=== PATIENT | female | born 1985 | race Caucasian/White ===

== ENCOUNTER 2016-09-29 18:41 | Observation (INO) | payer OTHER ==
[~2016-09-29 18:41] MED LIST: PERCOCET1 TA1 PO
--- NOTE | 2016-10-02 02:54 | DISCHARGE SUMMARY ---
ADMIT DATE: 09/29/2016 DISCHARGE DATE: 10/01/2016 ADMITTING DIAGNOSES: 1. A 31-year-old, 2, para 0, currently at 36-2/7 weeks' gestation 2. Severe carpal tunnel with 3. Gestational hypertension DISCHARGE DIAGNOSES: 1. A 31-year-old, 2, para 0, currently at 36-2/7 weeks' gestation 2. Severe carpal tunnel with 3. Gestational hypertension 4. Failed induction BRIEF HISTORY: This is a 31-year-old female, G2, P0, at 36-2/7 weeks' gestation, presenting to the hospital with very severe carpal tunnel with with progressively increasing blood pressures that are now greater than 140/90, greater than 4 hours apart. She denies any ongoing visual changes, headaches, or right upper quadrant pain. After an extensive conversation about risks and benefits, it was determined that it was in the patient's best interest to attempt an induction. HELLP labs were reassuring and urine protein creatinine ratio was normal. HOSPITAL COURSE: The patient was monitored over the ensuing days and blood pressures did improve with bed rest. HELLP labs remained fairly normal. The patient received 3 doses of Cytotec and 12 hours of Pitocin with minimal cervical change. A cervical ripening balloon was then placed, which did produce not insignificant cervical change; however, there was no significant cervical change with Pitocin following a cervical ripening balloon. At this point, the patient continued to deny any headaches, visual changes, right lower quadrant pain. Her blood pressures are fairly improved as long as she is relaxing in bed; however, do continue to be intermittently greater than 140/90, but not higher than 160/110. Her HELLP labs are reassuring; however, now she does have an indeterminate protein/creatinine ratio. I had a long conversation with this patient and her regarding the risks and benefits of continued induction attempts versus taking a break with very close monitoring for 24-48 hours and reattempting the induction. They chose to wait 24-48 hours and reattempt the induction. I did explain to the patient that they need to monitor her situation very closely. She needs to be on bed rest at home. If she has any symptoms of progression of her gestational hypertension, she needs to report to the OB triage unit immediately. 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 We discussed risks of sudden significant progression of the gestational hypertension and preeclampsia, including eclampsia with a seizure and/or to mom and/or baby. They understood the risks and benefits of both of their options and chose to take a break from the induction but with the knowledge that they will return immediately for any progression of her preeclampsia or gestational hypertension and the plan that she will return to the hospital in 48 hours for repeat induction attempt. Carpal tunnel syndrome has progessed to numbness of R hand, but without weakness at this time. Will continue to use wrist splints for now. Patient also with abnl UA, but with no symptoms and UA appears contaminated. UC pending. She was instructed to call me immediately for ANY UTI symptoms and we would empirically start antibiotics at that time. PHYSICAL EXAMINATION: HEENT: On the day of discharge, head is atraumatic, normocephalic. Trachea is midline. LUNGS: Clear to auscultation bilaterally. HEART: S1, S2, regular rate and rhythm. No S3, S4, gallops, or rubs. There is a 2/6 systolic murmur increased at the base. ABDOMEN: Gravid. Cervical exam is 2 cm, about 78% effaced, negative 2 vertex, medium and mid. heart tones are reassuring. DISCHARGE INSTRUCTIONS/MEDICATIONS: The patient was discharged home with instructions to return to the hospital in 48 hours for repeat induction attempt, sooner for any other symptoms of increasing blood pressures or signs or symptoms of progression of her gestational hypertension and/or preeclampsia. She was also instructed to return to the hospital for any rupture of membranes or labor. Diet: Normal diet. Activity: Bed rest. Medications: vitamins 1 tab p.o. daily.
[2016-10-07] MEDS ORDERED: PERCOCET1 TA1 PO (14:28)
[2016-10-07] MEDS ORDERED: IBUPROFEN200 M1 PO (19:41)
[2016-10-07] MEDS ORDERED: CORRECTOL100 MG PO (19:41)
[2016-10-07] MEDS ORDERED: ACYCLOVIR200 MG PO (21:13)
[2016-10-07] MEDS ORDERED: ZOVIRAX5 % TOP (22:14)
== END 2016-10-01 20:00 | disposition home or self-care (01) ==
LOC: OB SRH 18:41
PROVIDERS: ADMIT Family Medicine
PROC: 3E033VJ Introduction of Other Hormone into Peripheral Vein, Percutaneous Approach (ICD-10-PCS; principal; 2016-09-30)
PROC: 3E033VJ Introduction of Other Hormone into Peripheral Vein, Percutaneous Approach (ICD-10-PCS; 2016-10-01)
PROC: 0U7C7ZZ Dilation of Cervix, Via Natural or Artificial Opening (ICD-10-PCS; 2016-10-01)
DX: O13.3 Gestational [pregnancy-induced] hypertension without significant proteinuria, third trimester (principal); O61.0 Failed medical induction of labor; Z3A.36 36 weeks gestation of pregnancy; G56.01 Carpal tunnel syndrome, right upper limb
CPT/HCPCS: 29243; 29244; 29247; 29263; 40021; 83499; 90004; 90074; 90100; 90185; 90469; 92331; 92680; 92860; 94060; 95059

== ENCOUNTER 2016-10-02 20:57 | Outpatient (CLI) | payer OTHER | END 2016-10-02 23:00 | LOC: LAB SRH 20:57 | DX: O13.3 Gestational [pregnancy-induced] hypertension without significant proteinuria, third trimester (principal) | CPT/HCPCS: 90936; 92130; 92340 ==

== ENCOUNTER 2016-10-04 06:50 | Inpatient (IN) | payer OTHER ==
[~2016-10-04] VITALS: Ht 162.6 cm; Wt 83.5 kg
[2016-10-05] VITALS (8 sets, daily range): BP systolic 135–153; BP diastolic 81–95
--- NOTE | 2016-10-05 10:13 | Progress Note ---
Subjective General Patient states that she is doing well and much more comfortable after epidural. No fevers, no cp,sob. Had SROM this am. Physical Exam Vital Signs / I&Os afebrile, nl bp General Appearance Alert, Cooperative Pelvic VE 7-8cm/100%/-2 per nursing Other FHT: 140 + accels, neg decels; mod variablity Assessment and Plan Problem List 1. Elective induction of labor planned Plan Patient is doing well at this time. Has reassuring FHT. Has good pain control. Expectant management.
[2016-10-06 02:30] VITALS: BP 135/73
[2016-10-06 08:30] VITALS: BP 151/91
[2016-10-06 13:05] VITALS: BP 127/84
[2016-10-06 16:30] VITALS: BP 120/76
[2016-10-06 23:30] VITALS: BP 133/71
--- NOTE | 2016-10-06 23:31 | Progress Note ---
Subjective General Urinating ok. Minimal clots. Abd cramping improved with medications. Eating well. No headache, visual changes, or RUQ pain. Physical Exam Vital Signs / I&Os Vital Signs Date Time Temp Pulse Resp B/P Pulse O2 O2 Flow FiO2 Ox Delivery Rate 10/06 1630 36.6 65 18 120/76 10/06 1305 36.8 66 18 127/84 10/06 0830 36.6 67 18 151/91 10/06 0230 36.4 75 16 135/73 I&O 10/06 0000 10/05 1600 10/05 0800 Intake Total Output Total 500 Balance -500 General Appearance Alert, No acute distress, Mild distress Lungs Clear to auscultation, Normal air movement Cardiovascular Regular rate and rhythm, Normal S1 and S2, No murmurs, gallops, rubs Abdomen Normal bowel sounds, Soft, No tenderness, U-2 Extremities No edema Assessment and Plan Problem List 1. care following vaginal delivery Plan s/p induction 2/2 gestational hypertension. 2. Gestational hypertension Plan Good diuresis today. blood pressure improving. Will monitor 3. Carpal tunnel syndrome during Plan Worsened pain today, but decreased tingling.
[2016-10-07 09:00] VITALS: BP 134/92
[2016-10-07 13:35] VITALS: BP 141/85
[2016-10-07] MEDS ORDERED: PERCOCET1 TA1 PO ×2 (14:28)
[2016-10-07 17:20] VITALS: BP 137/80
[2016-10-07] MEDS ORDERED: CORRECTOL100 MG PO ×2 (19:41)
[2016-10-07] MEDS ORDERED: IBUPROFEN200 M1 PO ×2 (19:41)
--- NOTE | 2016-10-07 19:45 | Provider's Discharge Care Plan ---
Problem, Goal, Plan Problem List 1. Preeclampsia Goals: Improved health/wellness Instructions: Follow up as directed 2. Carpal tunnel syndrome during Goals: Improve disease control, Therapeutic intervention Instructions: Follow up as directed 3. care following vaginal delivery Goals: Improved health/wellness, Improve nutrition status Instructions: Follow up as directed
[2016-10-07] MEDS ORDERED: ACYCLOVIR200 MG PO ×2 (21:13)
[2016-10-07] MEDS ORDERED: ZOVIRAX5 % TOP ×2 (22:14)
--- NOTE | 2016-10-08 01:06 | DISCHARGE SUMMARY ---
ADMIT DATE: 10/04/2016 DISCHARGE DATE: 10/07/2016 ADMITTING DIAGNOSES: 1. Gestational hypertension 2. 2, para 0, currently at 38 and 6/7 weeks gestation 3. Severe carpal tunnel syndrome of DISCHARGE DIAGNOSES: 1. Preeclampsia 2. 2, now para 1, delivered at 39 weeks gestation, male with a tight nuchal cord, healthy 3. Chorioamnionitis 4. Severe carpal tunnel syndrome of , improving 5. Second degree perineal laceration 6. Herpes labialis BRIEF HISTORY: This is a 31-year-old, G2, P0, presenting to the hospital for induction secondary to gestational hypertension. On presentation to the hospital, HELLP and preeclampsia labs were repeated and urine protein creatinine ratio was initially normal. The patient's blood pressures were intermittently elevated, but fairly reassuring. HOSPITAL COURSE: Induction using Cytotec and then Pitocin was performed and the patient slowly progressed to complete, delivering a male at 39 weeks' gestation. The patient had been SROM for 21 hours and did spike a temperature within an hour of delivery. CBC was done and showed an elevated white blood cell count of 16.1, diagnosing chorioamnionitis. There was no time to give antibiotics before delivery. heart tones were very reassuring during the entire labor process ; however, infant had an extremely tight nuchal cord at the time of delivery, which was clamped and cut, however, the patient did not take a good strong spontaneous breath after delivery and PPV was performed as per the resuscitation note. Apgars were 3, 5, and 8. Infant is now doing fine. A second degree perineal laceration was repaired in the normal fashion after spontaneous delivery of an intact placenta. The patient was monitored in the hospital for the ensuing days, working on recovering. Blood pressures decreased after delivery and she had good diuresis after delivery. The patient did have extremely high blood pressures when she started going into active labor; however, it was thought that these blood pressures were due to pain and not the pre-eclamptic process since as soon as adequate pain control was achieved (after trying multiple IV meds and resorting to an epidural), elevated blood pressures significantly improved. On the second day of admission, a repeat urine protein creatinine ratio was done and was extremely elevated at 1.46 meeting diagnostic criteria for preeclampsia. PHYSICAL EXAMINATION: VITAL SIGNS: At the time of discharge, vital signs are stable. GENERAL: This is a well-appearing female, sitting in a chair, in no apparent distress. HEENT: Head is atraumatic, normocephalic. HEART: S1, S2, regular rate and rhythm. No S3, S4, murmurs, gallops, or rubs. LUNGS: Clear to auscultation bilaterally. ABDOMEN: Soft, nontender, nondistended without hepatosplenomegaly or masses. Bowel sounds are active. Uterus is 2 cm below the umbilicus. There is no peripheral edema. DISCHARGE INSTRUCTIONS/MEDICATIONS: The patient was discharged home with instructions to follow up with me within 1 week for a blood pressure check. Warning signs for worsening preeclampsia were cautioned and the patient was informed that she can develop worsening preeclampsia up to 6 weeks after delivery. Diet: Regular. Activity: Pelvic rest. Medications: Percocet 1-2 tabs p.o. q.4 hours p.r.n. severe pain. Ibuprofen 600 mg p.o. q.6 hours p.r.n. pain. Colace 100 mg p.o. b.i.d. Acyclovir 200 mg p.o. 5 times a day or acyclovir 5% topical ointment apply topically 5 times per day.
== END 2016-10-07 22:43 | disposition home or self-care (01) | DRG 774 ==
LOC: OB SRH 06:50
PROVIDERS: ADMIT Family Medicine
PROC: 3E033VJ Introduction of Other Hormone into Peripheral Vein, Percutaneous Approach (ICD-10-PCS; 2016-10-04)
PROC: 0KQM0ZZ Repair Perineum Muscle, Open Approach (ICD-10-PCS; principal; 2016-10-05)
PROC: 10E0XZZ Delivery of Products of Conception, External Approach (ICD-10-PCS; principal; 2016-10-05)
DX: O14.94 Unspecified pre-eclampsia, complicating childbirth (principal); Z37.0 Single live birth; O42.02 Full-term premature rupture of membranes, onset of labor within 24 hours of rupture; O41.1230 Chorioamnionitis, third trimester, not applicable or unspecified; O70.1 Second degree perineal laceration during delivery; O98.52 Other viral diseases complicating childbirth; B00.1 Herpesviral vesicular dermatitis; O69.1XX0 Labor and delivery complicated by cord around neck, with compression, not applicable or unspecified; Z3A.38 38 weeks gestation of pregnancy; G56.00 Carpal tunnel syndrome, unspecified upper limb
CPT/HCPCS: 40012; 83411; 83475; 83501; 84038; 90004; 90074; 90100; 90131; 90309; 90469; 90470; 91162; 91163; 92237; 92680; 92860; 94060; 95059